=== PATIENT | male | born 1965 | race Caucasian/White ===

== ENCOUNTER 2019-02-02 13:30 | Observation (INO) ==
[2019-02-02] MEDS ORDERED: NS 1,000 ML IV ONE ×3 (14:59→17:53)
[2019-02-02] MEDS ORDERED: KLONOPIN PO ONE (15:00)
--- NOTE | 2019-02-02 15:06 | EKG Report ---
Test Performed on : 02/02/2019 2:03:32 PM Test Reason : CP Blood Pressure : / mmHG Vent. Rate : 064 BPM Atrial Rate : 064 BPM P-R Int : 132 ms QRS Dur : 088 ms QT Int : 414 ms P-R-T Axes : 072 078 073 degrees QTc Int : 427 ms Normal sinus rhythm. Normal ECG When compared with ECG of 02-FEB-2019 14:03, (Unconfirmed) No significant change was found Unconfirmed Result
[2019-02-02 15:15] LABS: BASO# 0.02 X1000 (0.0-0.2); BASO% 0.2 % (0.0-0.8); EOS# 0.14 X1000 (0.0-0.7); EOS% 1.1 % (0.0-10.0); HEMATOCRIT 39.6 % (42.0-52.0); HEMOGLOBIN 13.4 g/dL (14.0-18.0); IMM GRAN# 0.04 X1000 (0.0-0.04); IMM GRAN% 0.3 % (0.0-0.5); LYMPH# 1.93 X1000 (1.2-3.4); LYMPH% 15.8 % (20.5-51.1); MCH 31.8 PG (27-31); MCHC 33.8 g/dL (33-37); MCV 93.8 FL (81-99); MONO% 9.8 % (1.7-9.3); MPV 9.2 FL (7.4-10.4); NEUT# 8.91 X1000 (1.4-6.5); NEUT% 72.8 % (42.2-75.2); PLT 357 X1000 (130-400); RBC 4.22 XMIL (4.7-6.1); RDW 14.7 % (11.5-14.5); WBC 12.24 X1000 (4.8-10.8)
--- NOTE | 2019-02-02 15:19 | Diag Imaging Result Doc PS360 ---
EXAM: CHEST-2 VIEWS HISTORY: SOB TECHNIQUE: Chest two views COMPARISON: 08/21/2018 FINDINGS: The lungs are well expanded. The heart is not enlarged. The vessels are not distended. There are no infiltrates. No pleural effusions. IMPRESSION: No acute abnormality. Electronically signed by Bereket Mayer 02/02/2019 3:17 PM
[2019-02-02 15:55] LABS: AGAP 14; ALB/GLOB RATIO 1.7; ALKALINE PHOSPHATASE 102 U/L (32-122); BUN 36 mg/dL (8-22); CALCIUM 9.5 mg/dL (8.8-10.2); CHLORIDE 105 mmol/L (98-107); CK PROFILE 60 U/L (24-204); COSMO 288; CREATININE 2.5 mg/dL (0.7-1.2); ESTIMATED GFR 27; GLUCOSE 112 mg/dL (70-104); GOT 15 U/L (10-34); GPT 11 U/L (10-44); SODIUM 140 mmol/L (136-145); TCO2 21 mmol/L (25-35); TOTAL BILIRUBIN < 0.15 mg/dL (0.20-1.00); TOTAL PROTEIN 6.4 g/dL (6.3-8.3)
[2019-02-02 15:59] LABS: URINE SOURCE CLEAN CATCH
[2019-02-02 16:02] LABS: BILIRUBIN URINE SMALL (NEGATIVE); BLOOD URINE NEGATIVE (NEGATIVE); COLOR YELLOW; GLUCOSE URINE TRACE mg/dL (NEGATIVE); KETONE URINE TRACE mg/dL (NEGATIVE); LEUKOCYTES URINE SMALL (NEGATIVE); NITRITE URINE NEGATIVE (NEGATIVE); PROTEIN URINE 70 mg/dL (NEGATIVE); SP GRAVITY URINE 1.026; TURBIDITY URINE HAZY (CLEAR); UROBILINOGEN URINE 3 mg/dL (NORMAL)
[2019-02-02 16:06] LABS: UR EPITHELIAL CELLS <10 /HPF (<10); URINE BACTERIA NEGATIVE /HPF; URINE RBC 20-40 /HPF (<10); URINE WBC <10 /HPF (<10)
[2019-02-02 16:13] LABS: URINE CASTS NONE SEEN; URINE CRYSTALS CA OXALATE PRESENT; URINE SMALL ROUND CELLS NONE SEEN; URINE YEAST NONE SEEN
[2019-02-02] MEDS ORDERED: MACROBID PO ONE (16:23)
--- NOTE | 2019-02-02 16:39 | PROVIDER DOCUMENTATION ---
This chart was entered by Georgina Mireles Scribe, acting as scribe for Shorty Haq MD. HPI-General Adult - General Chief Complaint: General Adult Stated Complaint: WEAKNESS Time Seen by Provider: 02/02/19 14:07 Source: patient Allergies/Adverse Reactions: Patient Allergies Allergy/AdvReac Type Severity Reaction Status Date / Time No Known Allergies Allergy Verified 02/02/19 13:53 Home Medications: Home Medication List Medication Instructions Recorded Confirmed Last Taken Type Baclofen 1 tab PO DIRECTED 11/01/18 02/02/19 02/01/19 20:00 History Dextroamphetamine/Amphetamine 1 tab PO BID 11/01/18 02/02/19 02/02/19 08:00 History [Adderall 30 mg Tablet] Lisinopril 1 tab PO DAILY 11/01/18 02/02/19 02/02/19 08:00 History Oxycodone E.r. [Oxycontin] 1 tab PO BID 11/01/18 02/02/19 02/02/19 08:00 History Venlafaxine E.r. [Effexor Xr] 1 tab PO DAILY 11/01/18 02/02/19 02/01/19 20:00 History Hydroxyzine [Atarax] 50 mg PO QHS 02/02/19 02/02/19 02/01/19 20:00 History Lisdexamfetamine Dimesylate 60 mg PO BID 02/02/19 02/02/19 02/02/19 08:00 History [Vyvanse] Oxcarbazepine [Trileptal] 300 mg PO QHS 02/02/19 02/02/19 02/01/19 20:00 History - History of Present Illness -Gen Adult Nature of Presenting Problems: Patient is a 53 year old male who presents with shortness of breath, fatigue and being disoriented yesterday. Patient states checking his blood pressure ye sterday and it was 87/60. Reports he has not been sleeping due to not having his Klonopin. States he has MS and takes Oxycodone 20 mg BID, Addrell 30 mg BID, and Vyvanse 60 mg BID for. Location of Pain/Injury: reports: none Pain Radiation: reports: no radiation Quality of Pain: reports: none Severity: reports: mild Onset/Duration: reports: 24 hours ago Timing: reports: still present Context/Activities at Onset: reports: light activity Associated Symptoms: reports: fatigue, shortness of breath, other (disoriented) Similar Symptoms Previously?: Yes Recently seen or treated by another doctor?: No Review of Systems - Adult - REVIEW OF SYSTEMS - ADULT Constitutional: reports: see HPI, fatique. denies: chills, fever Eyes: reports: no symptoms reported Ears, Nose, Mouth & Throat: reports: no symptoms reported Cardiovascular: reports: no symptoms reported Respiratory: reports: see HPI, shortness of breath. denies: cough, wheezing Gastrointestinal: reports: no symptoms reported Genitourinary: reports: no symptoms reported Musculoskeletal: reports: no symptoms reported Integumentary: reports: no symptoms reported Neurological: reports: see HPI, other (AMS - disoriented). denies: dizziness/vertigo, headache/migraines, syncope Psychiatric: reports: no symptoms reported Endocrine: reports: no symptoms reported Hematologic/Lymphatic: reports: no symptoms reported Allergic/Immunologic: reports: no symptoms reported All Other Systems: Reviewed and Negative Past History - Adult - PAST MEDICAL HISTORY-ADULT Review of Records: reports: Old Records Reviewed, Nursing Assessment Review, Medications Reviewed, Social history reviewed & non-contributory. Major Childhood Illnesses: reports: denies history Cardiovascular: reports: denies history Respiratory: reports: denies history Gastrointestinal: reports: denies history Obstetrical/Gynecological: reports: denies history Genitourinary: reports: denies history Musculoskeletal: reports: denies history Neurological: reports: Multiple Sclerosis Endocrine/Immune: reports: denies history Other Conditions: reports: denies history - PRIOR SURGERIES/PROCEDURES Surgical/Procedure History: reports: none - IMMUNIZATION STATUS Childhood Immunizations: See Nurse Assessment Flu Vaccine: See Nurse Assessment - FAMILY HISTORY Family History: reviewed, not pertinent - SOCIAL HISTORY Smoking: cigarettes, greater than 1 pack/day Provider spent 3-5 mins advising pt. on dangers of tobacco.: Discussed manners to quit use, and f/u contacts for add'l counseling. Substance Use: alcohol Alcohol Use Frequency: rarely Physical Exam-General - PHYSICAL EXAM-ADULT Initial Vital Signs Reviewed: Yes - CONSTITUTIONAL General Appearance: alert, no apparent distress. negative: lethargic, slow to respond - HEAD, EARS, NOSE, MOUTH & THROAT HENMT: normocephalic/atraumatic, moist mucous membranes. negative: angioedema, hearing deficit - RESPIRATORY Respiratory: chest non-tender, lungs clear, normal breath sounds. negative: crackles, stridor, wheezing - CARDIOVASCULAR Cardiovascular: normal peripheral pulses, regular rate, rhythm. negative: tachycardia, systolic murmur - GASTROINTESTINAL (ABDOMEN) Abdominal Exam: normal bowel sounds, non tender, soft. negative: rigid, rebound - MUSCULOSKELETAL Extremity: non-tender, normal inspection. negative: deformity - SKIN Integumentary: normal color, normal turgor, warm/dry. negative: ecchymosis, erythema, jaundice, rash - NEUROLOGIC Neurologic: grossly normal. negative: aphasia, facial droop - PSYCHIATRIC Psych/Mental Status: normal mood/affect, oriented x 3. negative: anxious Progress - PLAN OF CARE/RESULTS Progress/Plan/Lab Results: Vital Signs - 8 hr 02/02/19 13:51 Temperature 98 F Pulse Rate 87 Respiratory Rate 20 Blood Pressure 107/76 O2 Sat by Pulse Oximetry 98 Laboratory Results - last 24 hr 02/02/19 13:57 WBC 12.24 H RBC 4.22 L Hgb 13.4 L Hct 39.6 L MCV 93.8 MCH 31.8 H MCHC 33.8 RDW Std Deviation 14.7 H Plt Count 357 MPV 9.2 Immature Gran % (Auto) 0.3 Neut % (Auto) 72.8 Lymph % (Auto) 15.8 L [place] % (Auto) 9.8 H Eos % (Auto) 1.1 Baso % (Auto) 0.2 Immature Gran # (Auto) 0.04 Neut # (Auto) 8.91 H Lymph # (Auto) 1.93 [place] # (Auto) 1.20 H Eos # (Auto) 0.14 Baso # (Auto) 0.02 Orders Category Date Time Status CHEST-2 VIEWS [RAD] Stat Exams 02/02/19 14:59 Completed CBC WITH ELECTRONIC DIFF [HEME] Stat Lab 02/02/19 13:57 Completed CK PROFILE [SP CHEM] Stat Lab 02/02/19 15:07 Received COMPREHENSIVE METABOLIC PANEL [CHEM] Stat Lab 02/02/19 15:07 Received TROPONIN T Stat Lab 02/02/19 13:57 Received URINALYSIS W/POSS RFLX CULT [URINALYSIS] Stat Lab 02/02/19 14:59 Uncollected 0.9% Sodium Chloride Inj [Ns] 1,000 ml Med 02/02/19 14:59 Active IV 999 mls/hr Clonazepam [Klonopin] Med 02/02/19 15:00 Discontinued 1 mg PO NOW ONE EKG [EKG] Stat Ther 02/02/19 15:02 Draft A/P: SHUBHAM. dehydtaion suspected as cause, kno history of kidney disease. pts BP was 87/60 today. will rehydrate with IV NS. will admit for fluid hydration . Result Diagrams: 02/02/19 13:57 02/02/19 13:57 - EKG 1 Time of EKG reading by physician:: 14:03 EKG Read and Signed by:: Elissa Lamas EKG Interpretation (*Must complete 3 of following elements*): Normal Rate: 64 Rhythm: normal sinus rhythm Drake: normal QRS: normal SC Interval: normal ST Wave: normal Comments: normal ECG - XRAY 1 XRAY Study: Chest Impression: See EMR Report ( Signed EXAM: CHEST-2 VIEWS HISTORY: SOB TECHNIQUE: Chest two views COMPARISON: 08/21/2018 FINDINGS: The lungs are well expanded. The heart is not enlarged. The vessels are not distended. There are no infiltrates. No pleural effusions. IMPRESSION: No acute abnormality. Electronically signed by Bereket Mayer 02/02/2019 3:17 PM 02/02/19 1517 Interpreting Physician: Bereket Mayer MD Dictated Date/Time: 02/02/19 1516 cc: Shorty Haq MD; Andrew Saavedra MD) - CONSULTS/PCP/HOSPITALIST Notification #1 *Consult/PCP/Hospitalist*: [facility] for Hospitalist Time Discussed: 16:38 (Dr. Ibrahim accepted ) Reason/Comments: Dr. Haq consulted with LOU[facility] about patient. Consult Disposition: Will see in ED, Admit Departure - Departure Date of Disposition Decision: 02/02/19 Time of Disposition Decision: 16:32 DIAGNOSIS: SHUBHAM (acute kidney injury) Disposition: ADMITTED INPATIENT 09 Certified Medical Emergency: Emergent Condition: Stable Additional Freetext Instructions: We have examined and treated you today on an emergency basis only. This was not a substitute for, or an effort to provide, complete medical care. In most cases, you must let your doctor check you again. Tell your doctor about any new or lasting problems. We cannot recognize and treat all injuries or illnesses in one Emergency Department visit. If you had special tests, such as X-rays or CT scans, will be reviewed by radiologist and will call you if there are any new suggestions Follow up with primary care provider in 1 to 2 days if no improvement. If you do not have a primary care provider, you need to choose one as soon as possible. Take medicines as prescribed. Monitor for any side effects or adverse events from medications. If any side effect, adverse event or rash develops, or if you suspect any other adverse reaction to the medication, then discontinue the medication immediately and contact clinic /PCP or go to the nearest ER. Narcotic meds / sedative meds instruction - patent advised not to drive, operate any machinery or go into water after taking meds as it may impair mental ability to react to the situation in an appropriate manner . Continue other current medicines. Follow up with PCP within 24-48 hours, or sooner if symptoms worsen or fail to improve. Patient / guardian verbalizes understanding of treatment plan, medication, and side effects and agrees with treatment plan. Patient leaves ER in stable condition and ambulatory state. Return to ER as needed. Discharge instructions reviewed verbally and given to patient in written form. Follow up with primary care provider. Referrals and Follow-Ups: Andrew Saavedra MD [Primary Care Provider] - - Critical Care Note This patient required my direct & personal management of CC.: No Attestation - Physician/ DASIA Attestation Patient care was provided by Advanced Practice Provider:: No The physician spent face to face time with patient:: Yes Advanced Practice Provider documentation review:: Supervising physician onsite and consulted in the evaluation and care of this patient. The physician did have a face to face encounter with the patient. This chart was documented by the indicated scribe, (Georgina Mireles Scribe) and accurately reflects the services I performed and decisions made by me, Shorty Haq MD, as attested by the provider's signature.
[2019-02-02] MEDS ORDERED: TYLENOL PO PRN (17:18)
[2019-02-02] MEDS ORDERED: ZOFRAN IV PRN (17:18)
[2019-02-02 17:27] LABS: UR AMPHETAMINES QUAL PRESUMPTIVE POSITIVE (NONE DETECT); UR BARBITUATES QUAL NONE DETECTED (NONE DETECT); UR BENZODIAZEPIN QUAL NONE DETECTED (NONE DETECT); UR CANNABINOIDS QUAL NONE DETECTED (NONE DETECT); UR COCAINE QUAL NONE DETECTED (NONE DETECT); UR METHADONE QUAL NONE DETECTED (NONE DETECT); UR OPIATES QUAL NONE DETECTED (NONE DETECT); UR OXYCODONE QUAL PRESUMPTIVE POSITIVE (NONE DETECT); UR PCP QUAL NONE DETECTED (NONE DETECT)
[2019-02-02] MEDS ORDERED: ATARAX PO PRN (17:51)
--- NOTE | 2019-02-02 19:05 | Diag Imaging Result Doc PS360 ---
EXAM: US RENAL 2 (RETROPER) COMPLETE - 02/02/2019 HISTORY: ary TECHNIQUE: Bilateral renal ultrasound COMPARISON: None. FINDINGS: The right kidney measures 10.8 x 5 x 5.4 cm in size, with cortical thickness of approximately 1.2 cm. The left kidney measures 11.5 x 5.7 x 6.4 cm in size, with cortical thickness of approximately 1 cm. There is an apparent 1.6 cm cyst at the lower left kidney. There is no discrete solid renal mass or renal stone which is distinguishable from artifacts identified. There is no hydronephrosis identified. Images of the urinary bladder demonstrate no lesion. IMPRESSION: Apparent 1.6 cm left renal cyst. No other discrete abnormality. No hydronephrosis. Electronically signed by Tariq Costa 02/02/2019 7:02 PM
[2019-02-02] MEDS ORDERED: TRILEPTAL PO SCH (21:00)
--- NOTE | 2019-02-02 21:00 | HISTORY AND PHYSICAL ---
PRIMARY CARE PHYSICIAN: Andrew Saavedra MD CHIEF COMPLAINT: Weakness; lethargic and disoriented. HISTORY OF PRESENT ILLNESS: This is a 53-year-old male who presents to the ER today complaining of weakness, lethargy and disorientation that has been present for a couple of days now. The patient states he just feels out of place. This seems to have started about yesterday afternoon. The patient states he has a past medical history of a MS, where he has felt for the past 8 months more and more weak and lethargic, but since yesterday he has felt very weak, lethargic and disoriented. He states that he has been having chills, night sweats and shortness of breath since yesterday. He has not vomited, not had any headache. The patient does have chronic pain and takes pain medications. The patient does have hypertension and takes medications for that. The patient also takes amphetamines to help with his lethargy from his pain medications. The patient is not complaining of any pain at this present time. Laboratory findings show a white blood cell count of 12.24, hemoglobin 13.4, hematocrit 39.6. BUN 36, creatinine 2.5. Urinalysis was done and showed a small amount of leukocytes. The patient does not complain of any dysuria or any difficulty urinating. The patient states he does drink adequate amount and states that he has not had any changes in his urination. He states he has not had any pain in his side or any pain during urination. I asked if he noted any blood in his urine, and he said no. PAST MEDICAL HISTORY: MS, hypertension, chronic pain. PAST SURGICAL HISTORY: None. FAMILY HISTORY: States his mother has had 2 bouts of breast cancer. She is still living. Father is and he from an [place]. SOCIAL HISTORY: States he is on disability and has been for the past 5 years. He does admit to smoking 1 pack of cigarettes per day. He denies any alcohol or illicit drug abuse. ALLERGIES: No known drug allergies. MEDICATIONS: Baclofen 10 mg p.o. p.r.n.; Adderall 30 mg p.o. b.i.d.; Vyvanse 60 mg p.o. b.i.d.; lisinopril 20 mg p.o. daily; Atarax 50 mg p.o. at bedtime; Trileptal 300 mg p.o. at bedtime; OxyContin 20 mg p.o. b.i.d.; Effexor XR 1 p.o. daily. LABORATORY DATA: White blood cell count 12.24, hemoglobin 13.4, hematocrit 39.6, platelet count 357,000. Sodium 140, potassium 5.0, chloride 105, carbon dioxide 21, BUN 36, creatinine 2.5, glucose 112, calcium 9.5, total bilirubin less than 0.15, AST 15, ALT is 11, alkaline phosphatase 102. Creatine kinase is 60. Troponin less than 0.01. Urine shows 70 protein, trace ketones, small amount of bilirubin, small amount of leukocytes. Toxicology shows positive for oxycodone and positive for amphetamine. DIAGNOSTIC DATA: Chest x-ray shows no acute abnormality. REVIEW OF SYSTEMS: A 12-point review of systems was obtained and all are negative except for what is stated above in the HPI. ASSESSMENT: 1. Acute kidney injury. 2. Chronic pain. 3. Leukocytosis. 4. Dehydration. 5. Tobacco dependence. 6. Hypertension. 7. Depression. PLAN: We will admit this patient to the medical floor. We will start this patient on IV fluid hydration. We will restart the patient's home medications and control this patient's pain with home medications. We will order an ultrasound of the kidneys. We will repeat labs in the a.m. We will place this patient on a renal diet and closely monitor this patient. Dictated by LOUIS Blood for Ishan Ibrahim MD
--- NOTE | 2019-02-02 21:05 | HISTORY AND PHYSICAL ---
ADDENDUM: PHYSICAL EXAMINATION: VITAL SIGNS: Temperature 98.6 degrees, pulse rate 75, respiratory rate 19, blood pressure 128/71, O2 saturation 99% on room air. GENERAL: This is a well-nourished, well-developed 53-year-old male who is lying in the ER stretcher in no acute distress. HEENT: Atraumatic, normocephalic. Pupils equal, round and reactive to light. Mucous membranes are dry. No dentition. NECK: Supple. No lymphadenopathy. Trachea is midline. No JVD. CARDIOVASCULAR: No murmurs, gallops or rubs noted. Regular rate and rhythm. RESPIRATORY: Lung sounds are clear with equal chest excursion. Respirations are nonlabored with no accessory muscle usage. GASTROINTESTINAL: Abdomen is soft, nontender, nondistended. Bowel sounds are present x4. NEUROLOGIC: The patient is awake, alert, oriented. Cranial nerves are intact. No focal deficits noted. The patient's speech is clear. MUSCULOSKELETAL: Full distal strength noted. No abnormalities. The left side does seem a little weaker than the right side, but the patient still is very strong on the left side, the weakness is very minimal and it is only to the left foot area. There are no deformities noted. EXTREMITIES: There is no clubbing, no cyanosis. No edema. DP and PT pulses are present and intact. SKIN: Warm, dry and intact. No rashes. There is a small bruise noted to the left arm, to the forearm area. Dictated by LOUIS Blood for Ishan Ibrahim MD
[2019-02-02] MEDS: OXYCONTIN PO SCH (23:20)
[2019-02-03] MEDS ORDERED: PRILOSEC PO SCH (07:00)
[2019-02-03 07:13] LABS: BASO# 0.04 X1000 (0.0-0.2); BASO% 0.4 % (0.0-0.8); EOS# 0.32 X1000 (0.0-0.7); EOS% 3.1 % (0.0-10.0); HEMATOCRIT 35.3 % (42.0-52.0); HEMOGLOBIN 11.9 g/dL (14.0-18.0); IMM GRAN# 0.02 X1000 (0.0-0.04); IMM GRAN% 0.2 % (0.0-0.5); LYMPH# 2.77 X1000 (1.2-3.4); LYMPH% 27.1 % (20.5-51.1); MCHC 33.7 g/dL (33-37); MCV 94.9 FL (81-99); MONO# 0.76 X1000 (0.11-0.59); MONO% 7.4 % (1.7-9.3); NEUT% 61.8 % (42.2-75.2); PLT 294 X1000 (130-400); RBC 3.72 XMIL (4.7-6.1); RDW 14.8 % (11.5-14.5); WBC 10.21 X1000 (4.8-10.8)
[2019-02-03 07:57] LABS: AGAP 10; BUN 18 mg/dL (8-22); CALCIUM 8.4 mg/dL (8.8-10.2); CHLORIDE 107 mmol/L (98-107); COSMO 284; CREATININE 0.9 mg/dL (0.7-1.2); ESTIMATED GFR > 60; GLUCOSE 120 mg/dL (70-104); MAGNESIUM 1.7 mg/dL (1.5-2.7); POTASSIUM 3.7 mmol/L (3.5-5.1); SODIUM 141 mmol/L (136-145); TCO2 24 mmol/L (25-35)
[2019-02-03] MEDS: OXYCONTIN PO SCH (08:28)
[2019-02-03] MEDS ORDERED: EFFEXOR XR PO SCH (09:00)
[2019-02-03 11:35] VITALS: BP 150/69
--- NOTE | 2019-02-04 01:08 | DISCHARGE SUMMARY ---
ADMISSION DATE: 02/02/2019 DISCHARGE DATE: 02/03/2019 PRIMARY CARE PHYSICIAN: Dr. Saavedra. ADMISSION DIAGNOSES: 1. Acute kidney injury. 2. Chronic pain. 3. Leukocytosis. 4. Dehydration. 5. Tobacco dependence. 6. Hypertension. 7. Depression. DISCHARGE DIAGNOSES: 1. Acute kidney injury, resolved. 2. Chronic pain. 3. Leukocytosis, resolved. 4. Dehydration, resolved. 5. Tobacco dependence. 6. Hypertension. 7. Depression. SUMMARY OF FINDINGS: This is a 53-year-old male who presented to the ER with complaints of weakness, lethargy and disorientation for a couple of days. States he just felt out of place, felt more weak, and lethargic and disoriented. Had chills, night sweats, and shortness of breath the day prior. No vomiting and no headache. Does have chronic pain and takes chronic pain medication. His workup revealed a BUN of 36 with a creatinine of 2.5. White blood cells were 12.24. No difficulty urinating or dysuria. Urinalysis showed a small amount of leukocytes. He was admitted placed on IV hydration. We did an ultrasound of the kidneys that showed an apparent 1.6 cm left renal cyst, but no other discrete abnormality and no hydronephrosis. Today, his creatinine is down to 0.9. White blood cell count has returned to normal at 10.21. The patient states he is feeling better and it is felt that he can safely be discharged home. DISCHARGE MEDICATIONS: Will include hydroxyzine 50 mg p.o. at bedtime, Trileptal 300 mg p.o. at bedtime, oxycodone 20 mg 1 p.o. b.i.d., venlafaxine 150 mg 1 p.o. daily, baclofen 10 mg 1 p.o. as directed, Adderall 30 mg 1 p.o. b.i.d., and Vyvanse 60 mg p.o. b.i.d. FOLLOWUP: He needs to follow up with his primary care physician in the next 1 to 2 weeks and call their office for an appointment. All discharge instructions have been reviewed with the patient and he verbalized understanding. TIME SPENT: This is a 33 minute discharge. Dictated by LOUIS Hanks for Ishan Ibrahim MD cc: LOUIS Hanks MD Agree with the above. the following is my own face to face assessment. symptoms and SHUBHAM now resolved with IVF overnight. patient counseled on taking adequate fluids if he is going to be outside in the heat for prolonged periods of time. heart: RRR. lungs: CTAB abd: s/nt/nd, bs +. MTDD
== END 2019-02-03 13:06 | disposition home or self-care (01) ==
LOC: SUPCPDRO → ED 13:30 → INTOOBSV 18:39 → 3N 18:39
PROVIDERS: ATTEND Internal Medicine
CPT/HCPCS: 71020; 71046; 76770; 80048; 80053; 80101; 80301; 80307; 80324; 80345; 80346; 80353; 80358; 80361; 80365; 81001; 82550; 83735; 83992; 84484; 85025; 87088; 93005; 96360; 99284; A9270; G0431; G0434; G0479; G0480; J7030